=== PATIENT | male | born 1965 | race African-American/Black ===

== ENCOUNTER 2024-01-02 17:13 | Inpatient (IN) | payer BC ==
[2024-01-02 18:12] VITALS: BMI 25.0
[2024-01-02] MEDS ORDERED: MAGNESIUM HYDROX 2400MG/30ML ORAL SUSPENSION 30 ML CUP PO PRN (19:02)
[2024-01-02] MEDS ORDERED: BENZOCAINE/MENTHOL (CHLORASEPTIC ) LOZENGE MM PRN (19:02)
[2024-01-02] MEDS ORDERED: IBUPROFEN 400 MG TABLET (FP) PO PRN (19:02)
[2024-01-02] MEDS ORDERED: IBUPROFEN 600 MG TABLET (FP) PO PRN (19:02)
[2024-01-02] MEDS ORDERED: BISMUTH SUBSALICYLATE 524 MG/30 ML PO PRN (19:02)
[2024-01-02] MEDS ORDERED: POLYETHYLENE GLYCOL (HEALTHYLAX) 3350 17 GM PACKET PO PRN (19:02)
[2024-01-02] MEDS ORDERED: DICYCLOMINE HCL 10 MG CAPSULE PO PRN (19:02)
[2024-01-02] MEDS ORDERED: ACETAMINOPHEN 325 MG TABLET (FP) PO PRN (19:02)
[2024-01-02] MEDS ORDERED: MAG HYDROX/AL HYDROX/SIMETH 30 ML UNIT-DOSE CUP PO PRN (19:02)
[2024-01-02] MEDS ORDERED: LOPERAMIDE HCL 2 MG CAPSULE PO PRN (19:02)
[2024-01-02] MEDS ORDERED: BENZONATATE 200 MG CAPSULE PO PRN (19:02)
[2024-01-02] MEDS ORDERED: guaiFENesin 600 MG TABLET.ER (FP) PO PRN (19:02)
[2024-01-02] MEDS ORDERED: ONDANSETRON *ODT* 4 MG TABLET SL PRN (19:02)
[2024-01-02] MEDS: MELATONIN 5 MG TABLETS PO SCH (22:07)
[2024-01-02] MEDS: THIAMINE 100 MG TABLET PO SCH (22:08)
[2024-01-02] MEDS: hydrOXYzine PAMOATE 25 MG CAPSULE (FP) PO PRN (22:08)
[2024-01-02] MEDS: METHOCARBAMOL 500 MG TABLET PO PRN (22:08)
[2024-01-03] MEDS: PRENATAL VITAMINS W/ FOLIC ACID TABLET (FP) PO SCH (10:35)
[2024-01-03] MEDS ORDERED: diazePAM 5 MG TABLET PO PRN (10:59)
[2024-01-03] MEDS: diazePAM 5 MG TABLET PO SCH (11:32)
[2024-01-03 14:44] LABS: HEMATOCRIT 38.6 % (35.4-49); MCH 33.9 pg (25.7-33.7); MCHC 33.7 g/dl (32.0-35.9); MEAN CELL VOLUME 100.4 fl (80-96); PLATELET COUNT 232 10^3/uL (134-434); RBC 3.85 M/mm3 (4.00-5.60); RDW 14.6 % (11.9-15.9); WHITE BLOOD COUNT 4.9 K/mm3 (4.0-10.0)
[2024-01-03 14:47] LABS: CHLORIDE 112 mmol/L (98-107); POTASSIUM 4.3 mmol/L (3.5-5.1); SODIUM 142 mmol/L (136-145)
[2024-01-03 14:52] LABS: ALBUMIN 3.4 g/dl (3.4-5.0); ANION GAP 2 mmol/L (4-13); BLOOD UREA NITROGEN 15.5 mg/dL (7-18); CALCIUM 9.2 mg/dL (8.5-10.1); CO2 28 mmol/L (21-32); GLUCOSE,RANDOM 80 mg/dL (74-106)
[2024-01-03 14:55] LABS: CREATININE 0.7 mg/dL (0.55-1.3); SGOT/AST 20 U/L (15-37); SGPT/ALT 25 U/L (13-61)
[2024-01-03 14:56] LABS: BILIRUBIN,TOTAL 0.4 mg/dL (0.2-1); TOT PROT 6.2 g/dl (6.4-8.2)
[2024-01-03 14:57] LABS: ALK PHOS 75 U/L (45-117)
[2024-01-03 15:46] LABS: HIV INTERPRETATION NEGATIVE (NEGATIVE)
[2024-01-04] MEDS: diazePAM 5 MG TABLET PO SCH (15:40)
[2024-01-05] MEDS: diazePAM 5 MG TABLET PO SCH (05:59)
[2024-01-05] MEDS ORDERED: diazePAM 5 MG TABLET PO SCH (06:00)
[2024-01-06] MEDS: diazePAM 5 MG TABLET PO SCH (05:43)
[2024-01-06] MEDS ORDERED: diazePAM 5 MG TABLET PO SCH (06:00)
[2024-01-07] MEDS: diazePAM 5 MG TABLET PO ONE (05:41)
[2024-01-07] MEDS ORDERED: diazePAM 5 MG TABLET PO ONE (06:00)
[2024-01-07 06:32] VITALS: RESP 16; TEMP 97.7
[2024-01-07 09:13] VITALS: BP 106/61; PULSE 62
== END 2024-01-07 10:32 | disposition other institution (70) | DRG 774 ==
LOC: YASAS 17:13 → Y3N 19:59
PROVIDERS: ADMIT Allergy & Immunology; ATTEND Surgery
PROC: HZ2ZZZZ Detoxification Services for Substance Abuse Treatment (ICD-10-PCS; principal; 2024-01-02)
DX: F10.230 Alcohol dependence with withdrawal, uncomplicated (principal); F14.20 Cocaine dependence, uncomplicated; F12.20 Cannabis dependence, uncomplicated; R76.8 Other specified abnormal immunological findings in serum; Z86.19 Personal history of other infectious and parasitic diseases
CPT/HCPCS: 36415; 80053; 80305; 80307; 85027; 86593; 86780; 87389; 93005; 93010